=== PATIENT | female | born 1995 | race African-American/Black ===

== ENCOUNTER 2019-11-25 14:31 | Emergency (ER) | payer BC ==
[~2019-11-25] VITALS: Ht 182.9 cm; Wt 98.4 kg
[2019-11-25 15:14] VITALS: BP 119/67
[2019-11-25] MEDS ORDERED: BACITRACIN TOP OINT 1 UD PKG TOP ONE ×2 (16:00→16:01)
[2019-11-25] MEDS ORDERED: ACETAMINOPHEN 500 MG TAB PO ONE (16:00)
[2019-11-25] MEDS ORDERED: BACITRACIN INJ 50000 UNIT VIAL TOP ONE (16:30)
[2019-11-25 21:16] LABS: Urine Bacteria MOD /hpf (None Seen); Urine Blood Negative /uL (Negative); Urine Mucus FEW (None Seen); Urine Specific Gravity 1.019 (1.001-1.035); Urine WBC 8 /hpf (0 - 5)
== END 2019-11-25 17:29 | disposition home or self-care (01) ==
LOC: ER 14:31
DX: S05.12XA Contusion of eyeball and orbital tissues, left eye, initial encounter (principal); W19.XXXA Unspecified fall, initial encounter; Y93.89 Activity, other specified; Y92.89 Other specified places as the place of occurrence of the external cause; Y99.8 Other external cause status
CPT/HCPCS: 36415; 76801; 81001; 84702

== ENCOUNTER 2021-02-11 14:33 | Emergency (ER) | payer BC, OTHER ==
[~2021-02-11] VITALS: Ht 177.8 cm; Wt 122.5 kg
[2021-02-11 14:35] VITALS: BP 101/71
[2021-02-11] MEDS ORDERED: ACETAMINOPHEN 500 MG TAB PO ONE (16:15)
== END 2021-02-11 17:06 | disposition home or self-care (01) ==
LOC: ER 14:33
DX: S39.012A Strain of muscle, fascia and tendon of lower back, initial encounter (principal); S16.1XXA Strain of muscle, fascia and tendon at neck level, initial encounter; V43.52XA Car driver injured in collision with other type car in traffic accident, initial encounter; Y93.89 Activity, other specified; Y92.488 Other paved roadways as the place of occurrence of the external cause; Y99.8 Other external cause status
CPT/HCPCS: 72040; 72100